=== PATIENT | female | born 1940 | race Caucasian/White ===

== ENCOUNTER 2021-07-20 09:35 | Day surgery (SDC) | payer MEDICARE, OTHER ==
[~2021-07-20] VITALS: Ht 149.9 cm; Wt 70.8 kg
[~2021-07-20 09:35] MED LIST: Zithromax250 MG PO
--- NOTE | 2021-07-20 11:37 | NUR ---
07/20/21 1137 Sebastian Quinn LIDOCAINE 1% PF 1 MG USED [facility]UR[facility]GERY [facility] BY DR DUMONT.
== END 2021-07-20 12:15 | disposition home or self-care (01) ==
LOC: ORSCSDS 09:35
PROVIDERS: Ophthalmology
PROC: 08RJ3JZ Replacement of Right Lens with Synthetic Substitute, Percutaneous Approach (ICD-10-PCS; principal; 2021-07-20 11:00)
DX: H25.11 Age-related nuclear cataract, right eye (principal)
CPT/HCPCS: J2001; J3301; J7040; V2632

== ENCOUNTER 2021-08-10 09:27 | Day surgery (SDC) | payer MEDICARE, OTHER ==
[~2021-08-10] VITALS: Ht 149.9 cm; Wt 71.1 kg
== END 2021-08-10 12:00 | disposition home or self-care (01) ==
LOC: ORSCSDS 09:27
PROVIDERS: Ophthalmology
PROC: 08RK3JZ Replacement of Left Lens with Synthetic Substitute, Percutaneous Approach (ICD-10-PCS; principal; 2021-08-10 11:00)
DX: H25.12 Age-related nuclear cataract, left eye (principal)
CPT/HCPCS: J2001; J2250; J3301; J7040; V2632

== ENCOUNTER 2025-01-14 13:07 | Inpatient (IN) | payer MEDICARE, OTHER ==
[~2025-01-14] VITALS: Ht 149.9 cm; Wt 57.9 kg
[~2025-01-14 13:07] MED LIST changes: +CEPH500 PO; +Critic-Aid142 GM TOP; +METF500 PO; +MICAFUNGIN IV
[2025-01-14 14:22] LABS: BASOPHILS ABSOLUTE AUTO 0.06 K/mm3 (0.00-0.23); BASOPHILS PERCENT AUTO 1 % (0-2); EOSINOPHILS ABSOLUTE AUTO 0.17 K/mm3 (0.00-0.68); EOSINOPHILS PERCENT AUTO 2 % (0-6); Hematocrit 38.7 % (33.0-51.0); Hemoglobin 12.6 g/dL (11.5-16.0); IMMATURE GRAN ABSOLUTE AUTO 0.02 K/mm3 (0.00-0.10); IMMATURE GRAN PERCENT AUTO 0 % (0-1); LYMPHOCYTES ABSOLUTE AUTO 1.98 K/mm3 (0.84-5.20); LYMPHOCYTES PERCENT AUTO 25 % (21-46); MONOCYTES ABSOLUTE AUTO 0.56 K/mm3 (0.16-1.47); MONOCYTES PERCENT AUTO 7 % (4-13); Mean Corpuscular HGB Conc 32.6 g/dL (31.5-36.5); Mean Corpuscular Volume 89 fL (80-100); NEUTROPHILS ABSOLUTE AUTO 5.30 K/mm3 (1.96-9.15); NEUTROPHILS PERCENT AUTO 66 % (41-73); NRBC ABSOLUTE 0.00 K/mm3 (0.00-0.02); NRBC Auto 0.0 /100 WBC (0.0-0.2); Platelet Count 204 K/mm3 (150-400); RDW Coefficient Variation 14.6 % (11.7-14.2); RDW Standard Deviation 47.6 fL (35.1-46.3)
[2025-01-14 14:36] LABS: Alanine Aminotransfer (ALT/SGP 30.0 U/L (12-78); Albumin, Blood 2.9 g/dL (3.4-5.0); Albumin/Globulin Ratio 0.6 (0.8-1.8); Anion Gap 8.0 mmol/L (3-11); Aspartate Aminotrans (AST/SGOT 35.0 U/L (12-37); Bilirubin, Total 0.4 mg/dL (0.1-1.0); Blood Urea Nitrogen 10.0 mg/dL (8-24); CO2, Blood 27.0 mmol/L (21-32); Calcium, Blood 8.9 mg/dL (8.5-10.1); Chloride, Blood 106.0 mmol/L (98-108); Creatinine, Blood 0.57 mg/dL (0.40-1.00); Globulin, Blood 4.5 g/dL (2.2-4.0); Glucose, Blood 114.0 mg/dL (70-99); Potassium, Blood 3.9 mmol/L (3.5-5.5); Sodium, Blood 137.0 mmol/L (136-145); Total Protein, Blood 7.4 g/dL (6.4-8.2)
[2025-01-14] MEDS ORDERED: Insulin Human Lispro 100 Units/ML 3ML Syringe SC ONE (16:30)
[2025-01-14] MEDS ORDERED: Insulin Regular 100 UNIT/ML 10ML Vial SC SCH (18:00)
[2025-01-14 19:22] VITALS: BP 144/78
[2025-01-14] MEDS ORDERED: INSULANI SC (19:51)
[2025-01-14 23:16] VITALS: BP 150/79
[2025-01-14 23:21] VITALS: BP 150/79
[2025-01-15] VITALS (11 sets, daily range): BP systolic 113–136; BP diastolic 66–90
[2025-01-15 04:15] LABS: BASOPHILS ABSOLUTE AUTO 0.07 K/mm3 (0.00-0.23); BASOPHILS PERCENT AUTO 1 % (0-2); EOSINOPHILS ABSOLUTE AUTO 0.19 K/mm3 (0.00-0.68); EOSINOPHILS PERCENT AUTO 3 % (0-6); Hematocrit 37.6 % (33.0-51.0); Hemoglobin 12.0 g/dL (11.5-16.0); IMMATURE GRAN ABSOLUTE AUTO 0.02 K/mm3 (0.00-0.10); IMMATURE GRAN PERCENT AUTO 0 % (0-1); LYMPHOCYTES ABSOLUTE AUTO 2.24 K/mm3 (0.84-5.20); LYMPHOCYTES PERCENT AUTO 30 % (21-46); MONOCYTES ABSOLUTE AUTO 0.64 K/mm3 (0.16-1.47); MONOCYTES PERCENT AUTO 8 % (4-13); Mean Corpuscular HGB Conc 31.9 g/dL (31.5-36.5); Mean Corpuscular Volume 91 fL (80-100); NEUTROPHILS ABSOLUTE AUTO 4.43 K/mm3 (1.96-9.15); NEUTROPHILS PERCENT AUTO 58 % (41-73); NRBC ABSOLUTE 0.00 K/mm3 (0.00-0.02); NRBC Auto 0.0 /100 WBC (0.0-0.2); Platelet Count 174 K/mm3 (150-400); RDW Coefficient Variation 14.6 % (11.7-14.2); RDW Standard Deviation 49.0 fL (35.1-46.3)
[2025-01-15 04:44] LABS: Alanine Aminotransfer (ALT/SGP 23.0 U/L (12-78); Albumin, Blood 2.3 g/dL (3.4-5.0); Albumin/Globulin Ratio 0.5 (0.8-1.8); Anion Gap 9.0 mmol/L (3-11); Aspartate Aminotrans (AST/SGOT 25.0 U/L (12-37); Bilirubin, Total 0.3 mg/dL (0.1-1.0); Blood Urea Nitrogen 9.0 mg/dL (8-24); CO2, Blood 28.0 mmol/L (21-32); Calcium, Blood 8.2 mg/dL (8.5-10.1); Chloride, Blood 106.0 mmol/L (98-108); Creatinine, Blood 0.61 mg/dL (0.40-1.00); Globulin, Blood 4.4 g/dL (2.2-4.0); Glucose, Blood 139.0 mg/dL (70-99); Potassium, Blood 3.6 mmol/L (3.5-5.5); Sodium, Blood 139.0 mmol/L (136-145); Total Protein, Blood 6.7 g/dL (6.4-8.2)
--- NOTE | 2025-01-15 06:00 | NUR ---
SHIFT SUMMARY: PT ARRIVED ON UNIT AT 1914. A&OX4 CALM AND COOPERATIVE. HARD OF HEARING. VSS ON RA. 1P W/FWW TO BEDSIDE COMMODE. USES WALKER AT BASELINE. UNSTAGEABLE PRESSURE ULCERS ON BILATERAL HEELS. RESIDENT NOTIFIED. MEPILEX APPLIED. SEE PICTURES IN CHART. PREVIOUS CELLULITIS WOUNDS ON POSTERIOR BILATERAL CALVES. SEE PICTURES IN CHART. XEROFORM AND MEDIPORT APPLIED. PLAN IS FOR PACEMAKER PLACEMENT TODAY. PT KEPT NPO AFTER MIDNIGHT. Q6 [place]MB[place]. WILL CONTINUE PLAN OF CARE TILL REPORT GIVEN TO DAY SHIFT NURSE. BED IS LOW AND LOCKED AND CALL LIGHT WITHIN REACH.
[2025-01-15] MEDS ORDERED: NS 1,000 ML IV ONE ×2 (06:50)
[2025-01-15] MEDS ORDERED: Heparin Sodium 1000 Units/ML 10ML MDV ONE (06:50)
[2025-01-15] MEDS ORDERED: NS 50 ML IV ONE (07:47)
[2025-01-15] MEDS ORDERED: CeFAZolin Sodium 1000 mg Vial ONE (07:47)
[2025-01-15] MEDS ORDERED: Midazolam HCl 1MG / ML 2ML Vial ONE (07:55)
[2025-01-15] MEDS ORDERED: FentaNYL Citrate 50 MCG/ML 2 ML Injection ONE (07:55)
--- NOTE | 2025-01-15 12:18 | NUR ---
UPDATE PT BACK FROM [facility] APPROX 1000. LEADLESS PACER PLACED, R GROIN SITE. NO BLEEDING/BRUISING/HEMATOMA NOTED. ORDERS TO LAY FLAT X2 HRS. ASSESSED PT AT NOON, OFFERED TO ELEVATED 15 DEGREES AND REPOSITION. PT DECLINED, STATES SHES COMFORTABLE. INSTRUCTED TO USE CALL LIGHT IF CHANGES MIND. CALL LIGHT IN REACH. NO CHANGES NOTED TO R GROIN SITE.
--- NOTE | 2025-01-15 14:48 | NUR ---
"Spiritual Care| Nurse Recommendation Pt. is awake in bed and welcomes my visit. facilitate a lengthy life reviw and listen with empathy and interest. Pt. verbalizes about her who passed at the hospital a year ago. Pastoral care is given. Pt. displayed evidence of being capable of making her own decisions. Prayed for the Pt. Pt. verbalzied gratitude for the spiritual care visit."
--- NOTE | 2025-01-15 18:22 | NUR ---
SHIFT SUMMARY NO ACUTE CHANGES SINCE PREVIOUS NOTE. VSS. PT A&OX4. RESTED MOST OF AFTERNOON. DENIES PAIN. R GROIN SITE REMAINS NO BLEEDING NO BRUISING. HOB ELEVATED CURRENTLY TO 30 DEGREES. ABLE TO EAT DINNER. ABLE TO VOID/HAVE LARGE BM ON BED PURVIS. Q2H REPOSITIONING. CALL LIGHT IN REACH.
[2025-01-16 04:18] VITALS: BP 120/65
[2025-01-16 05:27] LABS: BASOPHILS ABSOLUTE AUTO 0.06 K/mm3 (0.00-0.23); BASOPHILS PERCENT AUTO 1 % (0-2); EOSINOPHILS ABSOLUTE AUTO 0.18 K/mm3 (0.00-0.68); EOSINOPHILS PERCENT AUTO 2 % (0-6); Hematocrit 38.2 % (33.0-51.0); Hemoglobin 12.2 g/dL (11.5-16.0); IMMATURE GRAN ABSOLUTE AUTO 0.02 K/mm3 (0.00-0.10); IMMATURE GRAN PERCENT AUTO 0 % (0-1); LYMPHOCYTES ABSOLUTE AUTO 1.67 K/mm3 (0.84-5.20); LYMPHOCYTES PERCENT AUTO 21 % (21-46); MONOCYTES ABSOLUTE AUTO 0.64 K/mm3 (0.16-1.47); MONOCYTES PERCENT AUTO 8 % (4-13); Mean Corpuscular HGB Conc 31.9 g/dL (31.5-36.5); Mean Corpuscular Volume 90 fL (80-100); NEUTROPHILS ABSOLUTE AUTO 5.56 K/mm3 (1.96-9.15); NEUTROPHILS PERCENT AUTO 69 % (41-73); NRBC ABSOLUTE 0.00 K/mm3 (0.00-0.02); NRBC Auto 0.0 /100 WBC (0.0-0.2); Platelet Count 174 K/mm3 (150-400); RDW Coefficient Variation 14.6 % (11.7-14.2); RDW Standard Deviation 47.9 fL (35.1-46.3)
[2025-01-16 05:59] LABS: Anion Gap 7.0 mmol/L (3-11); Blood Urea Nitrogen 8.0 mg/dL (8-24); CO2, Blood 30.0 mmol/L (21-32); Calcium, Blood 8.5 mg/dL (8.5-10.1); Chloride, Blood 105.0 mmol/L (98-108); Creatinine, Blood 0.69 mg/dL (0.40-1.00); Glucose, Blood 204.0 mg/dL (70-99); Potassium, Blood 3.9 mmol/L (3.5-5.5); Sodium, Blood 138.0 mmol/L (136-145)
--- NOTE | 2025-01-16 07:19 | NUR ---
PT ALERT AND ORIENTED. ON ROOM AIR. NO C/O CHEST PAIN. VITALS WNL. WOUND CARE COMPLETED THIS AM. CALL FORTE WITHIN REACH.
[2025-01-16 07:46] VITALS: BP 112/66
[2025-01-16 12:26] VITALS: BP 139/72
--- NOTE | 2025-01-16 14:55 | NUR ---
DISCHARGE SUMMARY PT A&OX4, VSS. POST LEADLESS PACER 01/15. INTERROGATION AND CHEST XRAY DONE THIS AM, SEE RESULTS. R GROIN SITE UNCHANGED. POST PACER EDUCATION AND PAPERWORK GIVEN. IVS REMOVED. TELEMETRY REMOVED. PT DRESSED IN HOME CLOTHING. WHEELED TO PRIVATE VEHICLE W/ DAUGHTER. MEDICATION FAXED TO [facility].
== END 2025-01-16 14:42 | disposition home health service (06) | DRG 229 ==
LOC: ER 13:07 → PCU 13:08
PROVIDERS: Internal Medicine; Student in an Organized Health Care Education/Training Program; ADMIT Family Medicine
PROC: 02HK3NZ Insertion of Intracardiac Pacemaker into Right Ventricle, Percutaneous Approach (ICD-10-PCS; principal; 2025-01-15)
DX: I44.2 Atrioventricular block, complete (principal); E11.9 Type 2 diabetes mellitus without complications; I10 Essential (primary) hypertension; D69.6 Thrombocytopenia, unspecified; I27.20 Pulmonary hypertension, unspecified; I05.0 Rheumatic mitral stenosis; R74.8 Abnormal levels of other serum enzymes; Z66 Do not resuscitate; Z79.84 Long term (current) use of oral hypoglycemic drugs; Z79.899 Other long term (current) drug therapy; Z86.19 Personal history of other infectious and parasitic diseases; Z79.4 Long term (current) use of insulin
CPT/HCPCS: 33274; 36415; 71046; 76937; 80048; 80053; 82947; 84484; 85025; 93005; 93010; 99152; 99153; 99285-25; A9270; C1760; C1769; C1786; C1894; G0378; J0690; J1644; J1815; J2250; J3010; J7030; J7040; Q9967